=== PATIENT | female | born 2000 | race Caucasian/White ===

== ENCOUNTER 2022-09-08 06:36 | Emergency (ER) | payer OTHER ==
--- NOTE | 2022-09-08 07:16 | ER ---
Nurse's Notes [facility] Name: Isabella Brizuela Age: 22 yrs Sex: Female : 2000 Arrival Date: 09/08/2022 Time: 06:49 Bed DIS3 Private MD: Diagnosis: Muscle spasm of back Presentation: 09/08 07:08 Chief complaint: Patient states: Cleaning a bathub yesterday and my back is killing me. jl7 Reports mid to upper back pain. Coronavirus screen: At this time, the client does not indicate any symptoms associated with coronavirus-19. Ebola Screen: No symptoms or risks identified at this time. Initial Sepsis Screen: Does the patient meet any 2 criteria? No. Patient's initial sepsis screen is negative. Does the patient have a suspected source of infection? No. Patient's initial sepsis screen is negative. Risk Assessment: Do you want to hurt yourself or someone else? Patient reports no desire to harm self or others. Onset of symptoms was September 07, 2022. 07:08 Method Of Arrival: Ambulatory [facility] er 07:08 Acuity: CARYN 4 jl7 Triage Assessment: 07:09 General: Appears in no apparent distress. uncomfortable, Behavior is calm, cooperative, jl7 appropriate for age. Pain: Complains of pain in left scapular area, right scapular area, left subscapular area, right subscapular area and mid back area Pain currently is 9 out of 10 on a pain scale. Musculoskeletal: Swelling absent Tenderness present in left scapular area, right scapular area, left subscapular area, right subscapular area and mid back area. 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 - Social history:: Smoking status: Reported history of juuling and/or vaping. Patient uses street drugs, marijuana. - Family history:: not pertinent. Screenin:31 [facility] ED Fall Risk Assessment (Adult) History of falling in the last 3 months, jl7 including since admission No falls in past 3 months (0 pts) Confusion or Disorientation No (0 pts) Intoxicated or Sedated No (0 pts) Impaired Gait No (0 pts) Mobility Assist Device Used No (0 pt) Altered Elimination No (0 pt) Score/Fall Risk Level 0 - 2 = Low Risk Oriented to surroundings, Maintained a safe environment. Humpty Dumpty Scale Fall Assessment Tool (age< 18yrs) Gender Female (1 pt). Abuse screen: Denies threats or abuse. Denies injuries from another. Nutritional screening: No deficits noted. Tuberculosis screening: No symptoms or risk factors identified. Fall Risk No fall in past 12 months (0 pts). Total Barrios Fall Scale indicates No Risk (0-24 pts). Vital Signs: 07:08 BP 107 / 79; Pulse 83; Resp 17; Temp 98.4(TE); Pulse Ox 100% ; Weight 50.8 kg; Height 5 jl7 ft. 4 in. (162.56 cm); Pain 9/10; 07:08 Body Mass Index 19.22 (50.80 kg, 162.56 cm) jl7 ED Course: 06:49 Patient arrived in ED. es 07:09 Triage completed. jl7 07:09 Arm band placed on right wrist. jl7 07:10 Jorge De, ANNE-MARIE is Primary Nurse. jl7 07:11 Ananth Hernandez MD is Attending Physician. rt 07:31 Patient has correct armband on for positive identification. jl7 07:31 No provider procedures requiring assistance completed. Patient did not have IV access jl7 during this emergency room visit. Administered Medications: 07:25 Drug: Ketorolac 30 mg Route: IM; Site: right deltoid; jl7 07:31 Follow up: Response: Medication administered at discharge. jl7 07:25 Drug: Flexeril (cyclobenzaprine) 10 mg Route: PO; jl7 07:31 Follow up: Response: Medication administered at discharge. jl7 Medication: 07:31 VIS not applicable for this client. jl7 Outcome: 07:15 Discharge ordered by . rt 07:31 Discharged to home ambulatory, with family. jl7 07:31 Condition: stable 07:31 Discharge instructions given to patient, Instructed on discharge instructions, follow up and referral plans. medication usage, Demonstrated understanding of instructions, follow-up care, medications, Prescriptions given X 1. 07:32 Patient left the ED. jl7 Signatures: Irasema Kearns Jahala, RN RN jl7 Ananth Hernandez MD MD rt
--- NOTE | 2022-09-08 07:16 | EDPHYS ---
Physician Documentation [facility] Name: Isabella Brizuela Age: 22 yrs Sex: Female : 2000 Arrival Date: 09/08/2022 Time: 06:49 Bed DIS3 Private MD: ED Physician Ananth Hernandez HPI: 09/08 07:17 This 22 yrs old Female presents to ER via Ambulatory with complaints of Back Pain. rt 07:17 The patient presents with pain that is acute. The symptoms are located in the low back. rt Onset: The symptoms/episode began/occurred yesterday. The pain does not radiate. Associated signs and symptoms: The patient has no apparent associated signs or symptoms. The problem was sustained when bending over. Modifying factors: The patient symptoms are alleviated by OTC meds, tylenol. Severity of symptoms: At their worst the symptoms were mild. Patient presents to the ED with a low back pain starting after cutting tubs yesterday. It is nonradiating, mild in severity, aching nature. No other aggravating or alleviating factors.. 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 - Social history:: Smoking status: Reported history of juuling and/or vaping. Patient uses street drugs, marijuana. - Family history:: not pertinent. ROS: 07:17 Constitutional: Negative for fever, chills, and weight loss, Eyes: Negative for injury, rt pain, redness, and discharge, Cardiovascular: Negative for chest pain, palpitations, and edema, Respiratory: Negative for shortness of breath, cough, wheezing, and pleuritic chest pain, Abdomen/GI: Negative for abdominal pain, nausea, vomiting, diarrhea, and constipation, MS/Extremity: Negative for injury and deformity, Skin: Negative for injury, rash, and discoloration, Neuro: Negative for headache, weakness, numbness, tingling, and seizure, Psych: Negative for depression, anxiety, suicide ideation, homicidal ideation, and hallucinations. 07:17 Back: Positive for pain with movement, Negative for injury or acute deformity. Exam: 07:17 Constitutional: This is a well developed, well nourished patient who is awake, alert, rt and in no acute distress. Head/Face: Normocephalic, atraumatic. Chest/axilla: Normal chest wall appearance and motion. Nontender with no deformity. No lesions are appreciated. Cardiovascular: Regular rate and rhythm with a normal S1 and S2. No gallops, murmurs, or rubs. Normal PMI, no JVD. No pulse deficits. Respiratory: Lungs have equal breath sounds bilaterally, clear to auscultation and percussion. No rales, rhonchi or wheezes noted. No increased work of breathing, no retractions or nasal flaring. Abdomen/GI: Soft, non-tender, with normal bowel sounds. No distension or tympany. No guarding or rebound. No evidence of tenderness throughout. Skin: Warm, dry with normal turgor. Normal color with no rashes, no lesions, and no evidence of cellulitis. MS/ Extremity: Pulses equal, no cyanosis. Neurovascular intact. Full, normal range of motion. Neuro: Awake and alert, GCS 15, oriented to person, place, time, and situation. Cranial nerves II-XII grossly intact. Motor strength 5/5 in all extremities. Sensory grossly intact. Cerebellar exam normal. Normal gait. Psych: Awake, alert, with orientation to person, place and time. Behavior, mood, and affect are within normal limits. 07:17 Back: Mild paraspinal tenderness at the upper lumbar region, no midline tenderness or step-offs. Vital Signs: 07:08 BP 107 / 79; Pulse 83; Resp 17; Temp 98.4(TE); Pulse Ox 100% ; Weight 50.8 kg; Height 5 jl7 ft. 4 in. (162.56 cm); Pain 9/10; 07:08 Body Mass Index 19.22 (50.80 kg, 162.56 cm) jl7 MDM: 07:11 Patient medically screened. rt 07:17 Differential diagnosis: chronic back pain, Fracture Ligament Injury Pyelonephritis rt ruptured disc, Ureterolithiasis. ED course: Patient presents to the ED with low back pain. She has no bowel, bladder incontinence, radicular symptoms to suggest cord compression, SEA, cauda equina syndrome. Symptoms not consistent with ureterolithiasis. Patient will be given medications, treated empirically. Patient stable for outpatient care.. 07:21 Data reviewed: vital signs, nurses notes. rt Administered Medications: 07:25 Drug: Ketorolac 30 mg Route: IM; Site: right deltoid; 7 07:31 Follow up: Response: Medication administered at discharge. 7 07:25 Drug: Flexeril (cyclobenzaprine) 10 mg Route: PO; 7 07:31 Follow up: Response: Medication administered at discharge. jl7 Disposition Summary: 09/08/22 07:15 Discharge Ordered Location: Home rt Problem: new rt Symptoms: are unchanged rt Condition: Stable rt Diagnosis - Muscle spasm of back rt Followup: rt - With: Private Physician - When: 2 - 3 days - Reason: Discharge Instructions: - Discharge Summary Sheet rt - Back Injury Prevention, [id number] rt - Back Exercises, [id number] rt Forms: - Medication Reconciliation Form rt - Work release form rt - Thank You Letter rt - Antibiotic Education rt - Prescription Opioid Use rt Prescriptions: - Cyclobenzaprine 10 mg Oral Tablet - take 1 tablet by ORAL route every 8 hours As needed; 12 tablet; Refills: 0, rt Product Selection Permitted Signatures: Jorge De RN RN jl7 Ananth Hernandez MD MD rt
[2022-09-08] MEDS ORDERED: KETOROLAC 30 MG/ML INJ ONE (07:24)
[2022-09-08] MEDS ORDERED: CYCLOBENZAPRINE 10 MG TAB ONE (07:24)
[2022-09-08 07:38] VITALS: BP 107/79; TEMP 98.4; O2SAT 100
== END 2022-09-08 07:32 | disposition home or self-care (01) ==
LOC: ER 06:36
DX: M62.830 Muscle spasm of back (principal)
CPT/HCPCS: 96372; 99283

== ENCOUNTER 2022-09-10 13:12 | Emergency (ER) | payer OTHER ==
--- NOTE | 2022-09-10 13:25 | ER ---
Nurse's Notes [facility] Name: Isabella Brizuela Age: 22 yrs Sex: Female : 2000 Arrival Date: 09/10/2022 Time: 13:16 Bed Waiting Private MD: Diagnosis: Strain of muscle, fascia and tendon of lower back-middle Presentation: 09/10 13:19 Chief complaint: Midack pain after cleaning bath tub 2 days ago. Coronavirus screen: At this time, the client does not indicate any symptoms associated with coronavirus-19. Ebola Screen: No symptoms or risks identified at this time. Initial Sepsis Screen: Does the patient meet any 2 criteria? No. Patient's initial sepsis screen is negative. Does the patient have a suspected source of infection? No. Patient's initial sepsis screen is negative. Risk Assessment: Do you want to hurt yourself or someone else? Patient reports no desire to harm self or others. Onset of symptoms was September 08, 2022. 13:19 Method Of Arrival: Ambulatory hb 13:21 Acuity: CARYN 4 hb Triage Assessment: 13:19 General: Appears in no apparent distress. Behavior is calm, cooperative. Pain: Pain hb currently is 9 out of 10 on a pain scale. Neuro: Level of Consciousness is awake, alert, obeys commands, Oriented to person, place, time, situation. Cardiovascular: Patient's skin is warm and dry. Respiratory: Respiratory effort is even, unlabored, Respiratory pattern is regular, symmetrical. GI: No signs and/or symptoms were reported involving the gastrointestinal system. : No signs and/or symptoms were reported regarding the genitourinary system. Derm: Skin is pink, warm \T\ dry. Musculoskeletal: Capillary refill < 3 seconds. Historical: - Allergies: 13:21 No Known Allergies; hb - Immunization history:: Adult Immunizations up to date. - Social history:: Smoking status: Patient denies any tobacco usage or history of. Vital Signs: 13:19 BP 112 / 75; Pulse 85; Resp 16; Temp 98.3; Pulse Ox 100% on R/A; Weight 50.8 kg; Height hb 5 ft. 4 in. (162.56 cm); Pain 9/10; 13:19 Body Mass Index 19.22 (50.80 kg, 162.56 cm) hb ED Course: 13:16 Patient arrived in ED. as 13:16 [facility]any Jeronimo [facility]C [facility] kb 13:16 Pamela Mcgregor MD is Attending Physician. kb 13:21 Arm band placed on. hb 13: Triage completed. hb Administered Medications: :29 Drug: HYDROcodone-acetaminophen 5 mg-325 mg 1 tabs Route: PO; hb 13:29 Follow up: Response: Medication administered at discharge. hb Outcome: 13:25 Discharge ordered by . kb 13:30 Discharged to home ambulatory. hb 13:30 Condition: stable 13:30 Discharge instructions given to patient, Instructed on discharge instructions, follow up and referral plans. medication usage, Demonstrated understanding of instructions, follow-up care, medications, Prescriptions given X 2. 13:30 Patient left the ED. hb Signatures: Bethany Jeronimo FNP-C PROCESS DEVELOPMENT TECHNICIAN-Jennifer Catsro as Perla Barajas, RN RN hb Corrections: (The following items were deleted from the chart) 13: 13:19 BP 112 / 75; Pulse 85bpm; Resp 16bpm; Pulse Ox 100% RA; Temp 98.3F; hb hb
--- NOTE | 2022-09-10 13:25 | EDPHYS ---
Physician Documentation [facility] Name: Isabella Brizuela Age: 22 yrs Sex: Female : 2000 Arrival Date: 09/10/2022 Time: 13:16 Bed Waiting Private MD: ED Physician Pamela Mcgregor HPI: 09/10 13:26 This 22 yrs old Female presents to ER via Ambulatory with complaints of Back Pain. kb 13:26 The patient presents with pain that is acute. The symptoms are located in the mid back kb area. Onset: The symptoms/episode began/occurred 4 day(s) ago. The pain does not radiate. Associated signs and symptoms: Pertinent positives: none. The problem was sustained when bending over. Modifying factors: The patient symptoms are alleviated by nothing, the patient symptoms are aggravated by any movement. Severity of symptoms: At their worst the symptoms were moderate, in the emergency department the symptoms are unchanged. The patient has not experienced similar symptoms in the past. The patient has been recently seen at the [facility], this week. Pt reports she was bending over cleaning a bathtub when she felt pain in her mid back. States her muscles have been tight since then. Was seen the following day here and given muscle relaxers that make her sleep, but have not helped the pain. . Historical: - Allergies: 13:21 No Known Allergies; hb - Immunization history:: Adult Immunizations up to date. - Social history:: Smoking status: Patient denies any tobacco usage or history of. ROS: 13:24 Constitutional: Negative for fever, chills, and weight loss. kb 13:24 Back: Positive for pain at rest, pain with movement, of the mid back area. 13:24 All other systems are negative. Exam: 13:24 Constitutional: This is a well developed, well nourished patient who is awake, alert, kb and in no acute distress. Head/Face: Normocephalic, atraumatic. ENT: Moist Mucous membranes Cardiovascular: Regular rate and rhythm with a normal S1 and S2. No gallops, murmurs, or rubs. No pulse deficits. Respiratory: Respirations even and unlabored. No increased work of breathing. Talking in full sentences Abdomen/GI: Soft, non-tender. No distention Back: No spinal tenderness. No costovertebral tenderness. Full range of motion. Skin: Warm, dry with normal turgor. Normal color. MS/ Extremity: Pulses equal, no cyanosis. Neurovascular intact. Full, normal range of motion. Neuro: Awake and alert, GCS 15, oriented to person, place, time, and situation. Moves all extremities. Normal gait. Vital Signs: 13:19 BP 112 / 75; Pulse 85; Resp 16; Temp 98.3; Pulse Ox 100% on R/A; Weight 50.8 kg; Height hb 5 ft. 4 in. (162.56 cm); Pain 9/10; 13:19 Body Mass Index 19.22 (50.80 kg, 162.56 cm) hb MDM: 13:24 Data reviewed: vital signs, nurses notes. Data interpreted: Pulse oximetry: on room air kb is 100 %. Interpretation: normal. Counseling: I had a detailed discussion with the patient and/or guardian regarding: the historical points, exam findings, and any diagnostic results supporting the discharge/admit diagnosis, the need for outpatient follow up, a family practitioner, to return to the emergency department if symptoms worsen or persist or if there are any questions or concerns that arise at home. 13:25 Patient medically screened. kb Administered Medications: 13:29 Drug: HYDROcodone-acetaminophen 5 mg-325 mg 1 tabs Route: PO; hb 13:29 Follow up: Response: Medication administered at discharge. Disposition Summary: 09/10/22 13:25 Discharge Ordered Location: Home kb Condition: Stable kb Diagnosis - Strain of muscle, fascia and tendon of lower back - middle kb Followup: kb - With: Emergency Department - When: As needed - Reason: Worsening of condition Followup: kb - With: Private Physician - When: 2 - 3 days - Reason: Recheck today's complaints, Continuance of care, Re-evaluation by your physician Discharge Instructions: - Muscle Strain, [id number] kb - Discharge Summary Sheet hb Forms: - Medication Reconciliation Form kb - Thank You Letter kb - Work release form hb - Antibiotic Education kb - Prescription Opioid Use kb Prescriptions: - ibuprofen 400 mg Oral tablet - take 1 tablet by ORAL route every 4-6 hours As needed as needed for pain; 30 kb tablet; Refills: 0, Product Selection Permitted - Prednisone 20 mg Oral Tablet - take 1 tablet by ORAL route once daily for 5 days; 5 tablet; Refills: 0, kb Product Selection Permitted Signatures: Bethany Jeronimo, EMS COORDINATOR-C EMS COORDINATOR-Ckb Perla Barajas, RN RN hb
[2022-09-10] MEDS ORDERED: HYDROCODONE/APAP 5/325 MG TAB ONE (13:27)
[2022-09-10 13:33] VITALS: BP 112/75; TEMP 98.3; O2SAT 100
== END 2022-09-10 13:30 | disposition home or self-care (01) ==
LOC: ER 13:12
DX: S39.012A Strain of muscle, fascia and tendon of lower back, initial encounter (principal)
CPT/HCPCS: 99283

== ENCOUNTER 2022-10-18 04:38 | Emergency (ER) | payer SELFPAY ==
[2022-10-18] MEDS ORDERED: ACETAMINOPHEN 325 MG TABLET ONE (05:10)
[2022-10-18 05:59] LABS: SARS-COV-2 RT PCR POSITIVE (NEGATIVE)
--- NOTE | 2022-10-18 06:02 | EDPHYS ---
Physician Documentation [facility] Name: Isabella Brizuela Age: 22 yrs Sex: Female : 2000 Arrival Date: 10/18/2022 Time: 04:40 Bed 20 Private MD: ED Physician Jn Ramsay HPI: 10/18 05:05 This 22 yrs old Female presents to ER via Ambulatory with complaints of Fever. rn 05:05 The patient reports fever, not measured (subjective). Onset: The symptoms/episode rn began/occurred yesterday. Modifying factors: there are no obvious modifying factors. Associated signs and symptoms: Pertinent positives: chills, cough, headache, myalgias, runny nose, sore throat, vomiting, Pertinent negatives: abdominal pain, altered mental status, chest pain, skin rash, shortness of breath. Severity of symptoms: At their worst the symptoms were mild in the emergency department the symptoms are unchanged. The patient has not experienced similar symptoms in the past. The patient has not recently seen a physician. Historical: - Allergies: 05:00 No Known Allergies; pf1 - PMHx: 05:00 Anxiety; Depressive disorder; pf1 - Immunization history:: Client reports receiving the 1st dose of the Covid vaccine, Last tetanus immunization: < 10 years ago Flu vaccine is not up to date. It has been more than one year since last vaccine. - Social history:: Smoking status: Reported history of juuling and/or vaping. Patient uses alcohol, but reports only rare drinking. street drugs, marijuana, daily . - Family history:: not pertinent. - Hospitalizations: : No recent hospitalization is reported. ROS: 05:05 Constitutional: + fever and myalgias ENT: + congestion and sore throat Neck: Neg for rn neck pain Respiratory: + cough, neg for sob Abdomen/GI: Negative for abd pain, + vomiting Neuro: + headache Exam: 05:07 Constitutional: This is a well developed, well nourished patient who is awake, alert, rn and in no acute distress. Head/Face: Normocephalic, atraumatic. ENT: MMM, no stridor or exudate Neck: + non-tender cervical LAD, No Meningismus. Cardiovascular: Tachycardic, regular. No pulse deficits. Respiratory: No increased work of breathing, no retractions or nasal flaring. Abdomen/GI: soft, non-tender Skin: Warm, dry MS/ Extremity: Pulses equal, no cyanosis. Neuro: Awake and alert, GCS 15 Vital Signs: 04:57 BP 114 / 58; Pulse 111; Resp 18; Temp 100.5; Pulse Ox 99% on R/A; Weight 52.16 kg; pf1 Height 5 ft. 5 in. (165.10 cm); Pain 7/10; 06:09 BP 102 / 57; Pulse 91; Resp 18 S; Temp 100.0(O); Pulse Ox 98% on R/A; as6 04:57 Body Mass Index 19.14 (52.16 kg, 165.10 cm) pf1 MDM: 04:49 Patient medically screened. rn 05:59 Differential diagnosis: viral Infection, bacterial infection, URI, COVID, flu. Data rn reviewed: vital signs, nurses notes, lab test result(s), and as a result, I will discharge patient. Counseling: I had a detailed discussion with the patient and/or guardian regarding: the historical points, exam findings, and any diagnostic results supporting the discharge/admit diagnosis, lab results, the need for outpatient follow up, to return to the emergency department if symptoms worsen or persist or if there are any questions or concerns that arise at home. Response to treatment: the patient's symptoms have mildly improved after treatment, and as a result, I will discharge patient. Special discussion: I discussed with the patient/guardian in detail that at this point there is no indication for admission to the hospital. It is understood, however, that if the symptoms persist or worsen the patient needs to return immediately for re-evaluation. ED course: Pt COVID +, no oxygen requirement, will dc home with return precautions. . 10/18 05:02 Order name: COVID-19/FLU A+B; Complete Time: 06:02 rn 10/18 05:02 Order name: Strep; Complete Time: 06:02 rn 10/18 05:51 Order name: Throat Culture EDMS Administered Medications: 05:08 Drug: Tylenol 650 mg Route: PO; as6 06:11 Follow up: Response: No adverse reaction as6 Disposition Summary: 10/18/22 06:01 Discharge Ordered Location: Home rn Problem: new rn Symptoms: have improved rn Condition: Stable rn Diagnosis - SARS-associated coronavirus as the cause of diseases classified elsewhere rn - Fever, unspecified rn Followup: rn - With: Private Physician - When: As needed - Reason: Recheck today's complaints, Re-evaluation by your physician Discharge Instructions: - Discharge Summary Sheet rn - Fever, Adult rn - COVID-19 rn - 10 Things You Can Do to Manage Your COVID-19 Symptoms at Home - [facility] [place] rn - Viral Illness, Adult rn - Prevent the Spread of COVID-19 if You Are Sick - [facility] [place] rn Forms: - Medication Reconciliation Form rn - Thank You Letter rn - Antibiotic patternator - Prescription Opioid Use rn - Work release form as6 Signatures: Dispatcher [employer] Jn Pierce MD MD rn Slawson, Ashby RN RN as6 Whit fenton RN RN pf1
--- NOTE | 2022-10-18 06:02 | ER ---
Nurse's Notes [facility] Name: Isabella Brizuela Age: 22 yrs Sex: Female : 2000 Arrival Date: 10/18/2022 Time: 04:40 Bed 20 Private MD: Diagnosis: SARS-associated coronavirus as the cause of diseases classified elsewhere;Fever, unspecified Presentation: 10/18 04:57 Chief complaint: Patient states: fever 102.5F of highest temp,sore throat, cough, pf1 congestion, nasal drainage, vomiting x 1 episode this AM and frontal headache pain of 7,onset yesterday. Patient stated took Ibuprofen 400mg at 0230 this AM. Coronavirus screen: Vaccine status: Patient reports receiving the 1st dose of the Covid vaccine. Client denies travel out of the [place] in the last 14 days. Client presents with at least one sign or symptom that may indicate coronavirus-19. Standard/surgical mask placed on the client. Ebola Screen: Patient negative for fever greater than or equal to 101.5 degrees Fahrenheit, and additional compatible Ebola Virus Disease symptoms. Initial Sepsis Screen: Does the patient meet any 2 criteria? No. Patient's initial sepsis screen is negative. Does the patient have a suspected source of infection? No. Patient's initial sepsis screen is negative. Risk Assessment: Do you want to hurt yourself or someone else? Patient reports no desire to harm self or others. Onset of symptoms was October 17, 2022. 04:57 Method Of Arrival: Ambulatory pf1 04:57 Acuity: CARYN 4 pf1 Historical: - Allergies: 05:00 No Known Allergies; pf1 - PMHx: 05:00 Anxiety; Depressive disorder; pf1 - Immunization history:: Client reports receiving the 1st dose of the Covid vaccine, Last tetanus immunization: < 10 years ago Flu vaccine is not up to date. It has been more than one year since last vaccine. - Social history:: Smoking status: Reported history of juuling and/or vaping. Patient uses alcohol, but reports only rare drinking. street drugs, marijuana, daily . - Family history:: not pertinent. - Hospitalizations: : No recent hospitalization is reported. Screenin:01 [facility] ED Fall Risk Assessment (Adult) History of falling in the last 3 months, pf1 including since admission No falls in past 3 months (0 pts) Confusion or Disorientation No (0 pts) Intoxicated or Sedated No (0 pts) Impaired Gait No (0 pts) Mobility Assist Device Used No (0 pt) Altered Elimination No (0 pt) Score/Fall Risk Level 0 - 2 = Low Risk Oriented to surroundings, Maintained a safe environment, Educated pt \T\ family on fall prevention, incl call for assistance when getting out of bed, Assessed \T\ reinforced patient's understanding of fall precautions, Provided non-skid footwear, Hourly rounding (assess needs \T\ fall precautionary measures) done, Used ambulatory aids as needed (educated on \T\ assisted with), Used gait belt as appropriate. Abuse screen: Denies threats or abuse. Nutritional screening: No deficits noted. Tuberculosis screening: No symptoms or risk factors identified. Assessment: 05:09 General: Appears in no apparent distress. Behavior is calm, cooperative, Reports fever as6 for feeling ill for. Pain: Complains of pain in generalized. Neuro: Level of Consciousness is awake, alert, obeys commands, Oriented to person, place, time, situation, Reports headache. Cardiovascular: Capillary refill < 3 seconds Patient's skin is warm and dry. Respiratory: Reports cough that is Respiratory effort is even, unlabored, Respiratory pattern is regular, symmetrical. GI: Reports nausea, vomiting. EENT: Reports nasal congestion. Vital Signs: 04:57 BP 114 / 58; Pulse 111; Resp 18; Temp 100.5; Pulse Ox 99% on R/A; Weight 52.16 kg; pf1 Height 5 ft. 5 in. (165.10 cm); Pain 7/10; 06:09 BP 102 / 57; Pulse 91; Resp 18 S; Temp 100.0(O); Pulse Ox 98% on R/A; as6 04:57 Body Mass Index 19.14 (52.16 kg, 165.10 cm) pf1 ED Course: 04:40 Patient arrived in ED. [email or web address] 04:49 Jn Ramsay MD is Attending Physician. rn 05:00 Triage completed. pf1 05:03 Frank Levine RN is Primary Nurse. as6 05:03 Patient has correct armband on for positive identification. Placed in gown. Bed in low pf1 position. Call light in reach. 05:09 Arm band placed on. as6 05:09 COVID-19/FLU A+B Sent. as6 05:09 Strep Sent. as6 06:10 No provider procedures requiring assistance completed. Patient did not have IV access as6 during this emergency room visit. Administered Medications: 05:08 Drug: Tylenol 650 mg Route: PO; as6 06:11 Follow up: Response: No adverse reaction as6 Medication: 05:09 VIS not applicable for this client. as6 Outcome: 06:01 Discharge ordered by . rn 06:10 Discharged to home ambulatory, with significant other. as6 06:10 Condition: stable 06:10 Discharge instructions given to patient, Instructed on discharge instructions, follow up and referral plans. Demonstrated understanding of instructions, follow-up care. 06:11 Patient left the ED. as6 Signatures: Jn Ramsay MD MD rn Jeffries, Jennifer [email or web address] Slawson, Ashby, RN RN as6 Whit fenton RN RN pf1
[2022-10-18 06:19] VITALS: BP 102/57; TEMP 100; O2SAT 98
== END 2022-10-18 06:11 | disposition home or self-care (01) ==
LOC: ER 04:38
DX: U07.1 COVID-19 (principal)
CPT/HCPCS: 0240U; 87070; 87081